=== PATIENT | male | born 1965 | race Caucasian/White ===

== ENCOUNTER → 2020-03-27 | Outpatient (CLI) | payer BC | END | disposition home or self-care (01) | LOC: COVID19 10:44 | PROVIDERS: ATTEND Family Medicine | DX: R50.9 Fever, unspecified (principal); Z20.828 Contact with and (suspected) exposure to other viral communicable diseases ==

== ENCOUNTER → 2021-02-20 | Outpatient (CLI) | payer BC ==
[~2021-02-20] MED LIST: FLEXERIL10 MG PO; MOTRIN800 MG PO
== END | disposition home or self-care (01) ==
LOC: RAD 15:36
PROVIDERS: ATTEND Family Medicine
DX: S43.402A Unspecified sprain of left shoulder joint, initial encounter (principal); X58.XXXA Exposure to other specified factors, initial encounter; Y93.89 Activity, other specified; Y92.89 Other specified places as the place of occurrence of the external cause; Y99.8 Other external cause status

== ENCOUNTER → 2021-02-26 | Outpatient (CLI) | payer BC | END | disposition home or self-care (01) | LOC: COVID19 15:49 | PROVIDERS: ATTEND Family Medicine | DX: Z11.52 Encounter for screening for COVID-19 (principal) ==

== ENCOUNTER → 2021-06-24 | Outpatient (CLI) | payer BC | END | disposition home or self-care (01) | LOC: COVID19 15:12 | PROVIDERS: ATTEND Student in an Organized Health Care Education/Training Program | DX: U07.1 COVID-19 (principal) ==

== ENCOUNTER 2022-02-26 08:55 | Inpatient (IN) | payer BC ==
[~2022-02-26] VITALS: Ht 178 cm; Wt 115.8 kg
[2022-02-26] VITALS (7 sets, daily range): BP systolic 127–159; BP diastolic 76–96
[2022-02-26 09:47] LABS: BASO % 0.6 % (0.0-1.0); EOS % 0.1 % (1.0-4.0); HEMATOCRIT 44.5 % (42.0-52.0); LYMPH # 2.7 10*3/uL (1.3-4.4); LYMPH % 40.3 % (27.0-41.0); MEAN CELL VOLUME 95.7 fl (80.0-94.0); MEAN CORPUSCULAR HGB 33.3 pg (27.0-31.0); MEAN CORPUSCULAR HGB CONC 34.8 g/dl (33.0-37.0); MEAN PLATELET VOLUME 8.8 fl (9.6-12.3); MONO # 0.6 10*3/uL (0.1-1.0); MONO % 9.2 % (3.0-9.0); NEUT # 3.3 10*3/uL (2.3-7.9); NEUT % 49.5 % (47.0-73.0); PLATELET COUNT AUTOMATED 304 10*3/uL (130-400); RED BLOOD COUNT 4.65 10*6/uL (4.50-5.90); RED CELL DISTRI WIDTH 12.5 % (0-14.5); WHITE BLOOD COUNT 6.7 10*3/uL (4.8-10.8)
[2022-02-26 09:58] LABS: ACT PARTIAL THROMBO TIME 27.8 SECONDS (20.0-32.1)
[2022-02-26 10:02] LABS: ALKALINE PHOSPHATASE 94 U/L (45-117); BUN 17 mg/dl (7-24); CHLORIDE 109 mmol/L (98-107); CREATININE 0.89 mg/dL (0.70-1.30); LIPASE 123 U/L (73-393); POTASSIUM 4.2 mmol/L (3.5-5.1); SGOT/AST 30 IU/L (3-35); SGPT/ALT 51 U/L (12-78); SODIUM 140 mmol/L (136-145); TOTAL PROTEIN 7.8 gm/dL (6.4-8.2)
[2022-02-26 10:14] LABS: ETHYL ALCOHOL < 3.0 mg/dl (<3)
[2022-02-26 10:22] LABS: BILIRUBIN Negative (Negative); BLOOD Negative (Negative); CLARITY Clear (Clear); COLOR Yellow (Yellow); GLUCOSE Negative (Negative); KETONE Negative (Negative); LEUKO ESTERASE Negative (Negative); NITRITE Negative (Negative); PH 5.5 (4.5-8.0); SPECIFIC GRAVITY 1.025 (1.001-1.030); UROBILINOGEN 0.2 E.U./dl (0.0-1.0)
[2022-02-26 10:29] LABS: URINE AMPHETAMINES < 1000 (1000ng/ml); URINE BARBITURATES < 200 (200ng/ml); URINE BENZODIAZEPINES < 200 (200ng/ml); URINE CANNABINOIDS (THC) < 50 (50ng/ml); URINE COCAINE < 300 (300ng/ml); URINE METHADONE < 300 (300ng/ml); URINE OPIATES < 300 (300ng/ml)
[2022-02-26 10:33] LABS: EPITHELIAL CELLS 0-2; MUCOUS 2+
[2022-02-26 10:35] LABS: URINE PHENCYCLIDINE < 25 (25ng/ml)
[2022-02-26] MEDS ORDERED: FLUOXETINE HYDR20 M1 PO (12:58)
[2022-02-26] MEDS ORDERED: FLUOXETINE HCL40 MG PO (12:58)
[2022-02-26] MEDS ORDERED: VISTARIL50 MG PO (23:29)
[2022-02-27] VITALS: BP 125/89
[2022-02-27 08:00] VITALS: BP 103/71
[2022-02-27 12:00] VITALS: BP 145/80
[2022-02-27 16:00] VITALS: BP 153/93
[2022-02-27 20:00] VITALS: BP 135/89
[2022-02-28] VITALS: BP 133/83
[2022-02-28 08:00] VITALS: BP 137/87
[2022-02-28 12:00] VITALS: BP 152/92
[2022-02-28 16:00] VITALS: BP 133/90
[2022-02-28 20:00] VITALS: BP 133/79; BP 138/63
[2022-03-01] VITALS: BP 125/82
[2022-03-01 06:23] LABS: BASO % 0.6 % (0.0-1.0); EOS % 0.3 % (1.0-4.0); HEMATOCRIT 42.6 % (42.0-52.0); LYMPH # 3.2 10*3/uL (1.3-4.4); LYMPH % 49.5 % (27.0-41.0); MEAN CELL VOLUME 98.2 fl (80.0-94.0); MEAN CORPUSCULAR HGB 32.9 pg (27.0-31.0); MEAN CORPUSCULAR HGB CONC 33.6 g/dl (33.0-37.0); MEAN PLATELET VOLUME 9.3 fl (9.6-12.3); MONO # 0.6 10*3/uL (0.1-1.0); MONO % 9.1 % (3.0-9.0); NEUT # 2.6 10*3/uL (2.3-7.9); NEUT % 40.3 % (47.0-73.0); PLATELET COUNT AUTOMATED 286 10*3/uL (130-400); RED BLOOD COUNT 4.34 10*6/uL (4.50-5.90); RED CELL DISTRI WIDTH 12.1 % (0-14.5); WHITE BLOOD COUNT 6.4 10*3/uL (4.8-10.8)
[2022-03-01 08:00] VITALS: BP 101/55
[2022-03-01] MEDS ORDERED: MECLIZINE HYD12.5 MG PO (10:23)
[2022-03-01] MEDS ORDERED: FLUOXETINE HYDR20 M1 PO (10:23)
== END 2022-03-01 11:34 | disposition home or self-care (01) | DRG 897 ==
LOC: ED 08:55 → EDHOLD 09:31 → 4E 09:31
PROVIDERS: Emergency Medicine; ADMIT Internal Medicine; ATTEND Internal Medicine
DX: F10.239 Alcohol dependence with withdrawal, unspecified (principal); R82.998 Other abnormal findings in urine; E66.9 Obesity, unspecified; D75.89 Other specified diseases of blood and blood-forming organs; Y90.0 Blood alcohol level of less than 20 mg/100 ml; F17.210 Nicotine dependence, cigarettes, uncomplicated; F41.1 Generalized anxiety disorder; F10.29 Alcohol dependence with unspecified alcohol-induced disorder; Z68.39 Body mass index [BMI] 39.0-39.9, adult; F32.A Depression, unspecified

== ENCOUNTER 2025-04-15 13:59 | Emergency (ER) | payer BC ==
[~2025-04-15] VITALS: Ht 177.8 cm; Wt 108.9 kg
[~2025-04-15 13:59] MED LIST changes: +FLUOXETINE HCL40 MG PO; +FLUOXETINE HYDR20 M1 PO; +MECLIZINE HYD12.5 MG PO; +NATURE'S BLEND F1 MG PO; +THIAMINE HCL100 MG PO; +VENLAFAXINE HYD75 M3 PO; +VISTARIL50 MG PO
[2025-04-15 15:44] LABS: BILIRUBIN Negative (Negative); BLOOD Negative (Negative); CLARITY Clear (Clear); COLOR Yellow (Yellow); KETONE Negative (Negative); LEUKO ESTERASE Negative (Negative); NITRITE Negative (Negative); PH 7.5 (4.5-8.0); SPECIFIC GRAVITY <= 1.005 (1.001-1.030); UROBILINOGEN 0.2 E.U./dl (0.0-1.0)
[2025-04-15 15:59] LABS: BACTERIA TRACE; RBC 0-2 rbc/hpf (0-2); WBC 0-2 wbc/hpf (0-5)
[2025-04-15] MEDS ORDERED: METHOCARBAMOL750 M1 PO (16:03)
[2025-04-15] MEDS ORDERED: ZYRTEC ALLERGY10 MG PO (16:03)
[2025-04-15] MEDS ORDERED: PREDNISONE20 M1 PO (16:03)
== END 2025-04-15 16:20 | disposition home or self-care (01) ==
LOC: ED 13:59
PROVIDERS: Emergency Medicine
DX: S29.012A Strain of muscle and tendon of back wall of thorax, initial encounter (principal); F41.9 Anxiety disorder, unspecified; J30.2 Other seasonal allergic rhinitis; R09.81 Nasal congestion; F17.290 Nicotine dependence, other tobacco product, uncomplicated; I10 Essential (primary) hypertension; H92.02 Otalgia, left ear; X58.XXXA Exposure to other specified factors, initial encounter; Y93.89 Activity, other specified; Y92.89 Other specified places as the place of occurrence of the external cause; Y99.8 Other external cause status

== ENCOUNTER → 2025-05-03 | Outpatient (CLI) | payer BC ==
[~2025-05-03] MED LIST changes: +METHOCARBAMOL750 M1 PO; +PREDNISONE20 M1 PO; +ZYRTEC ALLERGY10 MG PO
[2025-05-03 12:30] LABS: BASO # 0.0 10*3/uL (0.0-0.1); BASO % 0.3 % (0.0-1.0); EOS # 0.0 10*3/uL (0.0-0.4); EOS % 0.0 % (1.0-4.0); MEAN CELL VOLUME 96.9 fl (80.0-94.0); MEAN CORPUSCULAR HGB 31.8 pg (27.0-31.0); MEAN PLATELET VOLUME 9.6 fl (9.6-12.3); MONO # 0.4 10*3/uL (0.1-1.0); MONO % 6.5 % (3.0-9.0); NEUT # 4.0 10*3/uL (2.3-7.9); NEUT % 60.5 % (47.0-73.0); NUCLEATED RED BLOOD CELL 0.0 % (0.0-0.0); NUCLEATED RED BLOOD CELL 0.0 10*3/uL (0.0-0.0); PLATELET COUNT AUTOMATED 289 10*3/uL (130-400); RED CELL DISTRI WIDTH 12.6 % (0-14.5); RETICULOCYTE % 0.92 % (0.50-2.50)
[2025-05-03 13:00] LABS: BUN 19 mg/dl (9-23); GAMMA GLUTAMYL TRANSFERASE 50 U/L (0-73); LDL CHOLESTEROL 142 mg/dL (9-159); SGPT/ALT 28 U/L (5-49)
[2025-05-03 13:02] LABS: VITAMIN D, 25-HYDROXY 36.4 ng/mL (30-100)
[2025-05-05 08:06] LABS: ANTI-DSDNA ANTIBODIES 1 IU/mL (0-9)
== END | disposition home or self-care (01) ==
LOC: LAB 11:17
PROVIDERS: ATTEND Family Medicine
DX: E78.5 Hyperlipidemia, unspecified (principal); E55.9 Vitamin D deficiency, unspecified; R53.83 Other fatigue